=== PATIENT | male | born 1960 | race Caucasian/White ===

== ENCOUNTER → 2021-08-25 | Outpatient (CLI) | payer OTHER ==
[~2021-08-25] MED LIST: CLON.1 PO; FISH1000 PO; HYDACE5 PO; HYOS.125 SL; LANS15EC PO; LISI20 PO; LISI5 PO; OMEP10ER; OMEP20ER PO; ONDA4ODT MM; OXYACE5T PO; PROM25 PO; RANI150 PO; RXOXYACE PO; RXPROM25 PO; SUCR1 PO; TRIHYD253B PO
== END | disposition home or self-care (01) ==
LOC: LAB SHORT 11:07 → PLD 11:07
DX: L81.4 Other melanin hyperpigmentation (principal)
CPT/HCPCS: 88305